=== PATIENT | male | born 1970 | race Two or more races ===

== ENCOUNTER 2021-09-20 15:23 | Day surgery (SDC) | payer OTHER ==
[~2021-09-20] VITALS: Ht 172.7 cm; Wt 72.6 kg
[2021-09-20] MEDS ORDERED: COZAAR100 MG (15:40)
[2021-09-21] MEDS ORDERED: ANASTROZOLE1 MG (13:25)
[2021-09-21] MEDS ORDERED: ULTRAM50 MG PO (16:16)
[2021-09-21] MEDS ORDERED: TAMS0.4C PO (16:17)
[2021-09-21] MEDS ORDERED: LEVOFLOXACIN500 MG PO (16:18)
== END 2021-09-21 20:40 | disposition home or self-care (01) ==
LOC: CIR.AMB 15:23 → ER 15:23 → CIR.AMB 16:00 → ER 09-21 07:53 → SEC-K 09-21 07:53 → CIR.AMB 09-21 07:53 → EDSTATUS 09-21 14:28 → SURH 09-21 16:22 → SEC-K 09-21 16:22 → SURH 09-21 20:40 → CIR.AMB 09-21 20:40
PROVIDERS: ATTEND Surgery
DX: N20.1 Calculus of ureter (principal); Z20.822 Contact with and (suspected) exposure to COVID-19

== ENCOUNTER → 2021-11-08 | Day surgery (SDC) | payer OTHER ==
[~2021-11-08] MED LIST: ANASTROZOLE1 MG; CIPRO500 MG PO; COZAAR100 MG; LEVOFLOXACIN500 MG PO; TAMS0.4C PO; ULTRAM50 MG PO
== END | disposition home or self-care (01) ==
LOC: ADM 11-04 07:15 → CIR.AMB 06:20
PROVIDERS: ATTEND Surgery
DX: N20.1 Calculus of ureter (principal); Z20.822 Contact with and (suspected) exposure to COVID-19